=== PATIENT | female | born 1970 | race Caucasian/White ===

== ENCOUNTER → 2021-10-03 | Outpatient (CLI) | payer OTHER | LOC: MRI 09:42 | PROVIDERS: ATTEND Specialist | DX: S83.221A Peripheral tear of medial meniscus, current injury, right knee, initial encounter (principal) ==

== ENCOUNTER 2022-04-23 15:27 | Emergency (ER) | payer OTHER ==
[~2022-04-23] VITALS: Ht 165.1 cm; Wt 68.0 kg
[2022-04-23 17:03] VITALS: BP 129/81
== END 2022-04-23 17:03 | disposition home or self-care (01) ==
LOC: ER 15:51
DX: S92.532A Displaced fracture of distal phalanx of left lesser toe(s), initial encounter for closed fracture (principal); W22.8XXA Striking against or struck by other objects, initial encounter; Y93.01 Activity, walking, marching and hiking; Y92.89 Other specified places as the place of occurrence of the external cause
CPT/HCPCS: 99283